=== PATIENT | female | born 1975 | race Asian ===

== ENCOUNTER 2017-09-14 09:50 | Emergency (ER) | payer MEDICAID ==
[~2017-09-14] VITALS: Ht 172.7 cm; Wt 127.0 kg
[2017-09-14 10:00] VITALS: Ht 172.7 cm; Wt 127.0 kg
[2017-09-14 12:03] VITALS: BP 107/50
== END 2017-09-14 12:03 | disposition home or self-care (01) ==
LOC: ED 09:50
DX: M54.5 Low back pain (principal)
CPT/HCPCS: J1885; J3010